=== PATIENT | male | born 1945 | race Caucasian/White ===

== ENCOUNTER 2022-09-17 12:54 | Emergency (ER) | payer MEDICARE, BC, SELFPAY ==
[2022-09-17 13:12] LABS: Glucose, Whole Blood 171 mg/dL (60-115)
--- NOTE | 2022-09-17 13:31 | PC.NURSE ---
tricia wang called to find patient demographics, will get back to us.
--- NOTE | 2022-09-17 13:41 | PC.NURSE ---
call placed to [facility]. spoke with TOMASA. Case #[id number]. At this time, pending medical hx of pt, [facility] will hold on the pt.
[2022-09-17 13:52] VITALS: BMI 34.8
--- NOTE | 2022-09-17 13:54 | PC.NURSE ---
JAYCE at 1253, CPR in progress. pt with a 10 Gary airway. PT last known well 2 hours prior to EMS arrival, neighbor found pt down and called 911. one of epi given in the field, pt was shocked once for a ? V. tach rhythm. pt cold on arrival to room 5, continued compressions, 2 of epi given here, one amp of bicarb given. time of called at 1300. pt with no obvious trauma to the body, no wounds or bruising
--- NOTE | 2022-09-17 13:55 | ED.CPR ---
HPI - CPR General Chief Complaint: Cardiac Arrest/CPR Stated Complaint: unresponsive Time Seen by Provider: 09/17/22 13:17 Source: EMS Mode of arrival: EMS Limitations: other (Cardiac arrest) History of Present Illness HPI narrative: 77-year-old male brought in for cardiac arrest. Patient was found by his neighbor on the ground unresponsive called 911 patient had no pulse and no cardiac activity CPR was started and 5 friends of epinephrine via right lower extremities IO, patient also was cardioverted 1 time for possible fine VFib, airway was secured with [facility] airway and transported to the hospital on arrival patient is unresponsive, no pulse, no rhythm, patient was intubated, CPR was continued patient was given 2 IVs of 1 mg of epinephrine each and 1 amp of bicarb with no change in status, patient was declared at 13:00, medical stenographer was contacted and declined, patient's best friend Amanda was contacted and brother Gilbert Mai was contacted via phone . Patient never been in our hospital and old record is not available the only past medical history was obtained from brother patient had a cardiac history and stent placed 10 years ago, patient use alcohol on a daily basis. Review of Systems Review of Systems: All other systems are reviewed and are negative Constitutional: Reports as per HPI and Reports no additional constitutional complaints Eyes: Reports as per HPI and Reports no additional eye complaints Reports system reviewed and no additional complaints, except as documented Cardiovascular: Reports as per HPI and Reports no additional cardiovascular complaints Respiratory: Reports as per HPI and Reports no additional respiratory complaints Gastrointestinal: Reports as per HPI and Reports no additional gastrointestinal complaints Genitourinary: Reports no additional female genitourinary complaints Musculoskeletal: Reports no additional musculoskeletal complaints Skin/Breast: Reports system reviewed and no additional complaints, except as docu Psychiatric: Reports no additional psychiatric complaints Endocrine: Reports no additional endocrine complaints Hematologic/Lymphatic: Reports no additional hematologic/lymphatic complaints Allergic/Immunologic: Reports no additional allergic/immunologic complaints Reports system reviewed and no additional complaints, except as documented and Reports Abnormal speech present [facility] Social History Social History Advance Directives: No Advance Directives Information Provided: No Physical Exam Vital Signs: Vital Signs: BMI result Body Mass Index 34.8 General: Patient is unresponsive. PCR in process. HEENT: No trauma, no injuries. Chest and lungs: No trauma, no spontaneous breathing. Heart exam: Using the ultrasound was no cardiac activity, no rhythm. Abdomen: Slightly distended but no trauma. Back: no trauma, lividity on the back. Extremities: No trauma, no pulse Course Course Course Narrative: Case declined by medical stenographer by Raul Hernández number [id number]. MDM - Cardiac Arrest/CPR Lab Data Labs: Lab Results 09/17/22 Range/Units 12:57 POC Glucose 171 H (60-115) mg/dL Discharge Plan Discharge Clinical Impression: Cardiac arrest Patient Disposition: Date/Time: 09/17/22 13:00
--- NOTE | 2022-09-17 14:43 | PC.NURSE ---
nurse called the organ bank and informed me that the organ bank will be holding. ME called at 1422, ME declined pt RN and Aware.
--- NOTE | 2022-09-17 15:20 | PC.NURSE ---
repeat call placed to [facility], informed [facility] worker of pts PmHx. [facility] will continue to hold on the pt
== END 2022-09-17 15:24 | disposition expired ==
PROVIDERS: Emergency Provider Emergency Medicine
DX: I46.9 Cardiac arrest, cause unspecified (principal)
CPT/HCPCS: 82947; 99283; 99285; J0171